=== PATIENT | male | born 1940 | race Two or more races ===

== ENCOUNTER 2019-02-13 23:26 | Emergency (ER) | payer MEDICARE, OTHER ==
[~2019-02-13] VITALS: Ht 167.6 cm; Wt 73.9 kg
[~2019-02-13 23:26] MED LIST: ALBUTEROL SULF8.5 GM INH; ASPIRIN81 M1 PO; ATORVASTATIN CA10 MG PO; BACTRIM DS TAB1 EAC1 ORAL; CHOLESTEROL MED; GUAIFENESIN1200 MG PO; IBUPROFEN600 MG ORAL; KEFLEX500 MG ORAL; LEVOFLOXACIN500 MG ORAL; PROMETH-CODEIN 65 ML PO
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
--- NOTE | 2019-02-13 23:50 | NUR ---
ED Nurse Note: Patient's applyed tooth paste on his foot at home.
[2019-02-14] MEDS ORDERED: Tetanus/Diptheria/Pertussis IM ONE
[2019-02-14] MEDS ORDERED: traMADol 50mg tab ORAL ONE
[2019-02-14] MEDS ORDERED: ACETAMINOPHEN-1 EAC1 ORAL (00:09)
[2019-02-14] MEDS ORDERED: SILVADENE20 GM TP (00:09)
[2019-02-14 00:20] VITALS: BP 140/69
--- NOTE | 2019-02-14 00:20 | NUR ---
ED Nurse Note: Pt cleared by health care Provider for discharge. DC instructions/prescription was given and explained to pt and verbalized understanding of teachings. All medical deviecs such as ID band removed. Pt is AAO x4, ambulatory and left with all personal belongings.
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
== END 2019-02-14 00:20 | disposition home or self-care (01) ==
LOC: EMR 23:55
DX: T25.121A Burn of first degree of right foot, initial encounter (principal); T79.9XXA Unspecified early complication of trauma, initial encounter; X10.0XXA Contact with hot drinks, initial encounter; Y92.9 Unspecified place or not applicable; Z23 Encounter for immunization
CPT/HCPCS: 90471; 90715; 99283

== ENCOUNTER 2019-09-18 10:58 | Emergency (ER) | payer MEDICARE, OTHER ==
[~2019-09-18] VITALS: Ht 172.7 cm; Wt 73.9 kg
[~2019-09-18 10:58] MED LIST changes: +ACETAMINOPHEN-1 EAC1 ORAL; +SILVADENE20 GM TP
[2019-09-18 11:28] VITALS: BP 136/67
--- NOTE | 2019-09-18 11:28 | NUR ---
ED Nurse Note: PT AMBULATED TO ED WITH . PER PT HE HAS BEEN HAVING COUGH X1 MONTH WITH YELLOW PHLEGM. PT COMPELTED AMOXCILLIN PRESCRIPTION AND IS NOW ON LEVOFLOXACIN. PT STATES "MEDICATIONS HAVE NOT BEEN WORKING".
--- NOTE | 2019-09-18 11:29 | NUR ---
ED Nurse Note: PT PLACED IN GOWN AND OFFERED FACE MASK. PT DENIES HEADCHES, BUT STATES HE HAS A SORE THROAT FROM COUGHING FREQUENTLY.
[2019-09-18] MEDS ORDERED: Albuterol ud Inhalation HHN ONE (12:00)
--- NOTE | 2019-09-18 12:00 | NUR ---
ED Nurse Note: IV SITE ESTABLISHED; LINE PATENT AND INTACT. PT BLOOD SPECIMEN COLLECTED AND SENT TO LAB
--- NOTE | 2019-09-18 12:07 | NUR ---
ED Nurse Note: RT AT BEDSIDE
[2019-09-18 12:38] LABS: ANION GAP 6 mmol/L (5-15); BLOOD UREA NITROGEN 17 mg/dL (7-18); CALCIUM 8.9 MG/DL (8.5-10.1); CARBON DIOXIDE 27 MMOL/L (21-32); CHLORIDE 107 MMOL/L (98-107); CREATININE 0.9 MG/DL (0.55-1.30); POTASSIUM 4.3 MMOL/L (3.5-5.1); SODIUM 140 MMOL/L (136-145)
[2019-09-18 12:41] LABS: BASOPHILS % (AUTO) 1.9 % (0.0-2.0); EOSINOPHILS % (AUTO) 6.1 % (0.0-3.0); HEMATOCRIT 44.2 % (42.0-52.0); LYMPHOCYTES % (AUTO) 23.6 % (20.0-45.0); MEAN CORPUSCULAR VOLUME 85 FL (80-99); MONOCYTES % (AUTO) 14.2 % (1.0-10.0); NEUTROPHILS % (AUTO) 54.2 % (45.0-75.0); PLATELET COUNT 191 K/UL (150-450); RED BLOOD COUNT 5.19 M/UL (4.70-6.10); RED CELL DISTRIBUTION WIDTH 10.2 % (11.6-14.8); WHITE BLOOD COUNT 6.1 K/UL (4.8-10.8)
[2019-09-18 12:49] LABS: ALANINE AMINOTRANSFERASE 25 U/L (12-78); ALBUMIN 3.3 G/DL (3.4-5.0); ALBUMIN/GLOBULIN RATIO 0.9 (1.0-2.7); ALKALINE PHOSPHATASE 47 U/L (46-116); ASPARTATE AMINO TRANSFERASE 45 U/L (15-37); BILIRUBIN,TOTAL 0.4 MG/DL (0.2-1.0)
--- NOTE | 2019-09-18 13:33 | Diagnostic Imaging Report ---
EXAM: XR Chest, 2 Views CLINICAL HISTORY: COUGH TECHNIQUE: Frontal and lateral views of the chest. COMPARISON: Chest x-rays dated 08/02/06 FINDINGS: Lungs: Increased interstitial markings. The lungs are otherwise clear without focal consolidation. Pleural space: Unremarkable. The costophrenic angle are sharp. No visible pneumothorax. Heart: Unremarkable. No cardiomegaly. Mediastinum: Unremarkable. Bones/joints: Unremarkable. Vasculature: Atherosclerotic calcifications are noted within the aortic arch. IMPRESSION: Increased interstitial markings. This is nonspecific and may represent bronchitis or interstitial pneumonitis. No focal consolidation.
[2019-09-18] MEDS ORDERED: ALBUTEROL SULF8.5 GM INH (14:09)
--- NOTE | 2019-09-18 14:09 | NUR ---
ED Nurse Note: SON AT BEDSIDE.
--- NOTE | 2019-09-18 14:12 | NUR ---
ER DISCHARGE NOTE: Patient is cleared to be discharged per ERMD, pt is aox4, on room air, with stable vital signs. pt was given dc and prescription instructions, pt was able to verbalize understanding, pt id band and iv site removed without complications. pt is able to ambulate with steady gait. pt took all belongings. Pt accomapnied by son.
[2019-09-18 14:13] VITALS: BP 131/72
--- NOTE | 2019-09-19 12:50 | Emergency Room Report ---
History of Present Illness General Chief Complaint: Flu Like Symptoms Source: Patient, Medical Record Present Illness HPI 79-year-old male who presents with persistent cough for 1 month duration.He states his cough is nonproductive Patient was seen at his primary care doctor' s office and ENT multiple times. Patient was given antibiotics for his symptoms. He is taking a full course of Augmentin and recently started on Levaquin. Patient states the cough is still there and not improving. He had a CT of his sinuses done which was within normal limits. He never had an x-ray performed or other pulmonary testing. Patient denies any fevers or recent travel. . Allergies: Coded Allergies: No Known Allergies (Unverified , 08/24/12) Nursing Documentation-PMH Hx Cardiac Problems: No - high cholesterol Hx Cancer: No Hx Neurological Problems: No Review of Systems Constitutional: Denies: chills, fever Respiratory: Reports: cough, shortness of breath Cardiovascular: Denies: chest pain, palpitations Gastrointestinal: Denies: diarrhea, vomiting Genitourinary: Denies: hematuria, pain Musculoskeletal: Denies: joint swelling Skin: Denies: rash, lesions Neurological: Denies: headache, dizziness Physical Exam Vital Signs Date Time Temp Pulse Resp B/P (MAP) Pulse Ox O2 Delivery O2 Flow Rate FiO2 09/18/19 11:16 98.2 85 18 136/67 (90) 95 Room Air 09/18/19 12:11 36 Sp02 EP Interpretation: reviewed General Appearance: well appearing, no apparent distress, non-toxic Head: normocephalic, atraumatic Eyes: bilateral eye normal inspection ENT: hearing grossly normal, EOM grossly intact, moist mucus membranes Neck: supple Respiratory: chest non-tender, lungs clear, normal breath sounds, no rhonchi, no respiratory distress, no retraction, no wheezing, speaking full sentences Cardiovascular #1: regular rate, rhythm, no edema, normal capillary refill Cardiovascular #2: 2+ radial (R), 2+ radial (L) Gastrointestinal: soft, non-distended Rectal: deferred Musculoskeletal: moves extm spontaneously, no lower extremity edema Neurologic: grossly normal Psychiatric: mood/affect normal Skin: warm/dry, normal turgor Medical Decision Making Diagnostic Impression: Primary Impression: Pneumonitis ER Course 79-year-old male who presents with cough of one-month duration. Found to have no wheezing, rhonchi, respiratory dress at this time. Will perform chest x-ray and lab testing to evaluate for other causes of chest pain that were not evaluated as outpatient. Laboratory Tests Test 09/18/19 12:00 White Blood Count 6.1 K/UL (4.8-10.8) Red Blood Count 5.19 M/UL (4.70-6.10) Hemoglobin 14.0 G/DL (14.2-18.0) L Hematocrit 44.2 % (42.0-52.0) Mean Corpuscular Volume 85 FL (80-99) Mean Corpuscular Hemoglobin 27.0 PG (27.0-31.0) Mean Corpuscular Hemoglobin Concent 31.8 G/DL (32.0-36.0) L Red Cell Distribution Width 10.2 % (11.6-14.8) L Platelet Count 191 K/UL (150-450) Mean Platelet Volume 7.4 FL (6.5-10.1) Neutrophils (%) (Auto) 54.2 % (45.0-75.0) Lymphocytes (%) (Auto) 23.6 % (20.0-45.0) Monocytes (%) (Auto) 14.2 % (1.0-10.0) H Eosinophils (%) (Auto) 6.1 % (0.0-3.0) H Basophils (%) (Auto) 1.9 % (0.0-2.0) Sodium Level 140 MMOL/L (136-145) Potassium Level 4.3 MMOL/L (3.5-5.1) Chloride Level 107 MMOL/L (98-107) Carbon Dioxide Level 27 MMOL/L (21-32) Anion Gap 6 mmol/L (5-15) Blood Urea Nitrogen 17 mg/dL (7-18) Creatinine 0.9 MG/DL (0.55-1.30) Estimate Glomerular Filtration Rate mL/min (>60) Glucose Level 94 MG/DL (74-106) Calcium Level 8.9 MG/DL (8.5-10.1) Total Bilirubin 0.4 MG/DL (0.2-1.0) Aspartate Amino Transferase (AST) 45 U/L (15-37) H Alanine Aminotransferase (ALT) 25 U/L (12-78) Alkaline Phosphatase 47 U/L (46-116) Troponin I 0.000 ng/mL (0.000-0.056) Pro-B-Type Natriuretic Peptide 22 pg/mL (0-125) Total Protein 7.1 G/DL (6.4-8.2) Albumin 3.3 G/DL (3.4-5.0) L Globulin 3.8 g/dL Albumin/Globulin Ratio 0.9 (1.0-2.7) L Microbiology Date/Time Source Procedure Growth Status 09/18/19 12:00 Nasal Nares - Final Complete 09/18/19 12:00 Nasal Nares - Final Complete Lab Results Impression Within normal limits Last Vital Signs Date Time Temp Pulse Resp B/P (MAP) Pulse Ox O2 Delivery O2 Flow Rate FiO2 09/18/19 14:13 98.3 88 17 131/72 100 Room Air 09/18/19 12:11 36 Reevaluation Impression Patient found to have pneumonitis on chest x-ray. Recommended having close follow-up with head stock transfer clerk. Patient has good primary care doctor coverage which she can go see on Friday morning and be reevaluated. Advised patient to return to emergency room if there is any dizziness, nausea, vomiting, fever or any new symptoms. Otherwise discharge patient with albuterol inhaler to help with symptomatic control. Disposition: HOME, SELF-CARE Condition: Stable Scripts Albuterol Sulfate* (ALBUTEROL SULFATE MDI*) 8.5 Gm Hfa.aer.ad 2 PUFF INH Q4H PRN for cough/wheezing, #1 EA 0 Refills Prov: Galen Blum M.D. 09/18/19 Referrals: Rainer Spangler MD NON PHYSICIAN (PCP) Patient Instructions: Pneumonitis Additional Instructions: Follow-up with pulmonology in the next 1 to 2 days. Follow-up with the head stock transfer clerk below or 1 your primary care doctor recommends. Return to emergency room if worsening shortness of breath, or any new symptoms. Galen Blum M.D. Sep 19, 2019 12:50
== END 2019-09-18 14:12 | disposition home or self-care (01) ==
LOC: EMR 12:02
DX: J18.9 Pneumonia, unspecified organism (principal); E78.00 Pure hypercholesterolemia, unspecified
CPT/HCPCS: 36415; 71046; 80053; 83880; 84484; 85025; 86710; 93005; 94640; 99284